=== PATIENT | male | born 1990 | race Caucasian/White ===

== ENCOUNTER 2021-11-18 20:17 | Emergency (ER) | payer OTHER ==
[~2021-11-18] VITALS: Ht 175.3 cm; Wt 75.0 kg
[2021-11-18 20:27] VITALS: BP 134/76
== END 2021-11-18 21:10 | disposition left against medical advice (07) ==
LOC: EMS 20:53
DX: R06.02 Shortness of breath (principal)
CPT/HCPCS: 99281; Z7502